=== PATIENT | female | born 1950 | race Caucasian/White ===

== ENCOUNTER → 2018-07-20 | Outpatient (CLI) | payer OTHER ==
--- NOTE | 2018-07-22 15:05 | PATHOLOGY ---
[facility] Accession Number: [id number] . 01 Material submitted: . breast - RIGHT BREAST, 9:30, 9CMFN. Modifiers: right, 9:00 . 01 Clinical history: . Right breast mass 9:30, 9 cm from nipple, 8 mm . 02 Diagnosis: Adipose tissue, right breast mass, 9:30 needle biopsies: - Intramammary lymph node. See comment. . (JPM:mm; 07/22/2018) [facility]/07/22/2018 . 02 Comment: Sections of the right breast mass at 9:30 needle biopsy reveal an intramammary lymph node. The fran architecture appears intact. The lymph node appears reactive. There are several lymphoid follicles which contain germinal centers. There is no evidence of malignancy. The case is also examined by Dr. Erlinda Mc, hematopathologist, who concurs with the diagnosis. . (JPM:mml; 07/22/2018) . 02 Electronically signed: . Malcom Tijerina MD, Pathologist NPI- [id number] . 01 Gross description: . The specimen is received in formalin, labeled "Frantz Shiia, right Breast mass 0930, 9 cm from nipple, 8 mm", are several de león-white soft needle core and hemorrhagic fragments measuring up to 0.7 x 0.2 x 0.1 cm in aggregate. The specimen is entirely submitted in A1-A3. Specimen excised at: 0820 on 07/20/18, placed in formalin at: 0820 on 07/20/18, formalin exposure: Approximately 14 hours and 20 minutes. ([facility]; 07/20/2018) [facility] . 02 Pathologist provided ICD-10: N63.0 . 02 CPT . 965464 Specimen Comment: A courtesy copy of this report has been sent to Specimen Comment: [phone], , . Specimen Comment: Report sent to ,DR ORDOÑEZ / DR GRANADOS Performed at: [address], [place] [id number] MD Yasmany Coe MD Phone: [phone] Performed at: 02 [facility] [address] [place], [place] [id number] MD Malcom Tijerina MD Phone: [phone]
--- NOTE | 2018-07-26 10:09 | RAD ---
Ultrasound-guided right breast biopsy, 07/20/2018: History: Suspicious nodule An outside studies demonstrated a small lymph node type density at the 9:30 location in the right breast which was thought to be enlarging. Biopsy was requested. Under local anesthesia, aseptic conditions and sonographic guidance 4 separate 18-gauge core samples were obtained from this nodule via an inferolateral approach. A biopsy marker was then deposited the biopsy site. Hemostasis was obtained. Two-view postprocedural digital mammograms were obtained to document position of the biopsy marker. The biopsied nodule was obscured mammographically by moderate postbiopsy hemorrhage. The patient tolerated the procedure well and left the department in good condition. The subsequent pathology report indicated the presence of an intramammary lymph node without evidence of malignancy. Follow-up right mammography in 6 months is suggested.
== END | disposition home or self-care (01) ==
LOC: US 07:29
PROVIDERS: ATTEND Surgery
DX: N63.10 Unspecified lump in the right breast, unspecified quadrant (principal); R59.1 Generalized enlarged lymph nodes; R92.8 Other abnormal and inconclusive findings on diagnostic imaging of breast
CPT/HCPCS: 19083; 77065; 88305; C1713; 76942

== ENCOUNTER → 2020-04-26 | Outpatient (CLI) | payer OTHER ==
[~2020-04-26] MED LIST: BARIUM SULFATE 2.1% 450 ML SUSP PO ONE; CONTRAST GIVEN. MC PRN; IOHEXOL 300 MG/ML 100ML VIAL. IV ONE; TAMO10TA6 PO
--- NOTE | 2020-04-26 14:59 | KCIC ---
EXAM: CT Abdomen and Pelvis with IV contrast CLINICAL HISTORY: Reason: Pelvic fluid seen on recent ultrasound / Spl. Instructions: 89mL Omni 300 / History: Pelvic tenderness 1 month. Lt oophorectomy.. COMPARISON: none TECHNIQUE: Helical CT of the abdomen and pelvis was performed following the administration of intrave nous contrast. Axial, coronal and sagittal reformatted images were generated. PQRS compliance statement - One or more of the following individualized dose reduction techniques wer e utilized for this study: 1. Automated exposure control 2. Adjustment of the mA and/or kV according to patient size 3. Use of iterative reconstruction technique FINDINGS: Lower Chest: Small right pleural effusion. Small hiatal hernia. Abdomen and Pelvis: Numerous hypodense hepatic lesions are seen, suspicious for metastatic disease, for example a represe ntative right hepatic lobe lesion (series 2 image 18) measures 7 mm. Gallbladder is mildly distended. No definite gallstones or biliary ductal dilatation. Adrenal glands are unremarkable. Splenic lesio n measures 14.7 x 11.1 x 13.1 cm. Separate additional low-density lesions are seen, for example poste riorly 1.7 cm lesion is seen. Pancreas is grossly unremarkable. There is abdominal lymphadenopathy. For example a aortocaval lymph node measures 4.6 x 4.1 cm with re gions of high density, with mass effect on the associated portal vein and IVC. Additional right upper quadrant and peripancreatic lymph nodes are enlarged. Retroperitoneal lymphadenopathy with an aortoc aval lymph node measuring 2.3 x 1.8 cm (image 36). Mesenteric root lymph node measures approximately 3.6 x 2.3 cm (series 2 image 34). Associated high density mesenteric collection is seen extending stormy ng the branches of the SMA and SMV likely small hemorrhagic collection/hematoma measuring approximate ly 3.7 x 3 x 7.7 cm. There is also pelvic lymphadenopathy with a right external iliac chain lymph node measuring 1.8 x 1.6 cm. A right pelvic sidewall lymph node measures 2.8 x 1.5 cm. Many of these lymph nodes are high den sity or partially high density. Moderate volume abdominal and pelvic ascites. There is focal nodular peritoneal enhancement suspiciou s for peritoneal implants, particularly in the pelvis. Aorta is grossly normal in caliber. Intermittent atherosclerotic calcifications are seen. Bones: No aggressive osseous lesion is seen. Degenerative changes of spine are noted. IMPRESSION: 1. 14.7 cm splenic lesion with additional splenic lesions, low density hepatic lesions, and abdomina l and pelvic lymphadenopathy. The large splenic lesion may be a primary malignancy such as angiosarco ma with the additional lesions likely metastatic. Consider histopathologic correlation and/or MRI wit h contrast for further evaluation. 2. Focal nodular peritoneal enhancement may represent metastatic peritoneal implants. 3. The gallbladder appears distended and although this may be related to fasting state, partial or t ransient intermittent obstruction on the cystic duct by the enlarged right upper quadrant lymph node is not excluded and can be correlated with LFTs as clinically indicated. 4. Right pleural effusion. Small hiatal hernia. 5. Moderate abdominal and pelvic ascites. Electronically signed by: Pola Perry MD (04/26/2020 2:57 PM) [id number]
== END ==
LOC: KCIC CT 08:21
PROVIDERS: ATTEND Nurse Practitioner Women's Health
DX: J90 Pleural effusion, not elsewhere classified (principal); K44.9 Diaphragmatic hernia without obstruction or gangrene; D73.89 Other diseases of spleen; R18.8 Other ascites
CPT/HCPCS: 74177; Q9967

== ENCOUNTER → 2020-04-30 | Outpatient (CLI) | payer OTHER ==
[~2020-04-30] MED LIST changes: -BARIUM SULFATE 2.1% 450 ML SUSP PO ONE; -CONTRAST GIVEN. MC PRN; -IOHEXOL 300 MG/ML 100ML VIAL. IV ONE
--- NOTE | 2020-04-30 14:17 | CARD ---
MR#: [id number] Date of Study: 04/30/2020 Ordering Physician: BETTY WOODSON, Referring Physician: BETTY WOODSON, Tech: Julia Block RDCS APPROVED REPORT EXAM: Two-dimensional and M-mode echocardiogram with Doppler and color Doppler. Other Information Quality : Good INDICATION Peripheral Edema 2D DIMENSIONS RVDd3.2 (2.9-3.5cm)Left Atrium(2D)3.3 (1.6-4.0cm) IVSd0.9 (0.7-1.1cm)Aortic Root(2D)2.6 (2.0-3.7cm) LVDd4.2 (3.9-5.9cm)LVOT Diameter2.1 (1.8-2.4cm) PWd0.9 (0.7-1.1cm)LVDs2.5 (2.5-4.0cm) FS (%) 30.0 %SV57.8 ml LVEF(%)60.0 (>50%) Aortic Valve AoV Peak Colby.113.1cm/sAoV VTI21.2cm AO Peak GR.5.1mmHgLVOT Peak Colby.119.5cm/s LVOT VTI 22.71cmAO Mean GR.3mmHg MAREK (VMAX)3.76zu5BFM (VTI)3.62cm2 Mitral Valve MV E Kttijbyq97.2cm/sMV DECEL PERQ048rd MV A Kvgshegq78.4cm/sMV YCM94sh E/A Ratio0.9MVA (PHT)3.66cm2 TDI E/Lateral E'6.6E/Medial E'11.7 Tricuspid Valve TR P. Aywdvgzm161rr/sRAP GGFOPAIC0fyHj TR Peak Gr.87puJvZSEN96xjXj Pulmonary Vein S1 Elqdxgem15.7cm/sD2 Eztkldss75.9cm/s LEFT VENTRICLE The left ventricle is normal size. There is normal left ventricular wall thickness. The left ventricu lar systolic function is normal. The Ejection Fraction is 55-60%. There is normal LV segmental wall m otion. Transmitral Doppler flow pattern is Grade I-abnormal relaxation pattern. RIGHT VENTRICLE The right ventricle is normal size. The right ventricular systolic function is normal. ATRIA The left atrium size is normal. The right atrium size is normal. The interatrial septum is intact wit h no evidence for an atrial septal defect or patent foramen ovale as noted on 2-D or Doppler imaging. AORTIC VALVE The aortic valve is calcified but opens well. Doppler and Color Flow revealed no significant aortic r egurgitation. There is no significant aortic valvular stenosis. MITRAL VALVE The mitral valve is calcified but opens well. Mitral annular calcification is mild. There is no evide nce of mitral valve prolapse. There is no mitral valve stenosis. Doppler and Color-flow revealed mild mitral regurgitation. TRICUSPID VALVE The tricuspid valve is normal in structure and function. Doppler and Color Flow revealed mild tricusp id regurgitation. The PA pressure was estimated at 32 mmHg. There is no tricuspid valve stenosis. PULMONIC VALVE The pulmonic valve is not well visualized. Doppler and Color Flow revealed trace to mild pulmonic jesus vular regurgitation. There is no pulmonic valvular stenosis. GREAT VESSELS The aortic root is normal in size. The ascending aorta is normal in size. The IVC is normal in size a nd collapses >50% with inspiration. PERICARDIAL EFFUSION There is no evidence of significant pericardial effusion. Critical Notification Critical Value: No <Conclusion> The left ventricular systolic function is normal. The Ejection Fraction is 55-60%. There is normal LV segmental wall motion. Transmitral Doppler flow pattern is Grade I-abnormal relaxation pattern. Mild mitral regurgitation. Mild tricuspid regurgitation. The PA pressure was estimated at 32 mmHg. There is no evidence of significant pericardial effusion. Signed by : Dhruv Aviles, Electronically Approved : 04/30/2020 14:16:58
== END ==
LOC: ECHO 12:56
PROVIDERS: ATTEND Internal Medicine
DX: I08.8 Other rheumatic multiple valve diseases (principal)
CPT/HCPCS: 93306